=== PATIENT | male | born 1955 | race Asian ===

== ENCOUNTER 2017-03-24 16:51 | Emergency (ER) | payer OTHER ==
[2017-03-24 16:55] VITALS: BP 135/71; PULSE 84; TEMP 98.8; BMI 22.8
[2017-03-24] MEDS ORDERED: BACITRACIN 15 GM TUBE TOPICAL OINTMENT ONE ×2 (17:51→18:34)
--- NOTE | 2017-03-24 18:24 | PDOC ---
History of Present Illness - General Chief Complaint: Injury Stated Complaint: LACERATION Time Seen by Provider: 03/24/17 17:18 History Source: Patient Exam Limitations: No Limitations - History of Present Illness Initial Comments: 03/24/17 17:38 Patient is a 61-year-old male, history of hypertension high cholesterol presents to the Emergency department for evaluation of laceration to right medial ankle and the left lateral fifth finger. Patient states that he dropped a large glass jug on the floor and it broke and he sustained the above lacerations. Reports that he had a tetanus two years ago. Past Medical History: Denies. Allergies: No known allergies Medications: see medication list Family History: Non-contributory Social History: Denies smoking, alcohol use, or IVDU Review of Systems GENERAL/CONSTITUTIONAL: No fever or chills. No weakness. No weight change. RESPIRATORY: No cough, wheezing, or hemoptysis. MUSCULOSKELETAL: No joint or muscle swelling or pain. No neck or back pain. SKIN : 6 cm laceration to the right medial ankle, 3 cm laceration to the posterior left ankle, 4 cm flap laceration to the right fifth finger. NEUROLOGIC: No headache, vertigo, loss of consciousness, or loss of sensation. PSYCHIATRIC: No depression or anxiety. ENDOCRINE: No increased thirst. No abnormal weight change. HEMATOLOGIC/LYMPHATIC: No anemia, easy bleeding, or history of blood clots. ALLERGIC/IMMUNOLOGIC: No hives or skin allergy. No latex allergy. Physical Exam: GENERAL: The patient is awake, alert, and fully oriented, in no acute distress. LUNGS: Breath sounds equal, clear to auscultation bilaterally. No wheezes, and no crackles. HEART: Regular rate and rhythm, normal S1 and S2 without murmur, rub or gallop. ABDOMEN: Soft, nontender, normoactive bowel sounds. No guarding, no rebound. No masses. No bruising or abrasions MUSCULOSKELETAL: Normal range of motion, no edema. No clubbing or cyanosis. No cords, erythema, or tenderness. No CVA Tenderness with fist. SKIN: 6 cm laceration to the right medial ankle, 3 cm laceration to the posterior left ankle, 4 cm flap laceration to the right fifth finger. . Past History - Past Medical History Allergies/Adverse Reactions: Allergies Allergy/AdvReac Type Severity Reaction Status Date / Time No Known Allergies Allergy Verified 03/24/17 16:54 Home Medications: Ambulatory Orders Metoprolol Succinate [Toprol Xl] 100 mg PO DAILY 07/15/16 Oxycodone HCl [Roxicodone -] 5 mg PO Q4H PRN #30 tablet MDD 60mg 07/18/16 Amlodipine Besylate 10 mg PO ASDIR 03/24/17 Diabetes: Yes GI Disorders: No HTN: Yes - Surgical History Cholecystectomy: Yes (07/17/16) - Psycho/Social/Smoking Cessation Hx Anxiety: No Suicidal Ideation: No Smoking History: Never smoked Number of Cigarettes Smoked Daily: 0 Hx Alcohol Use: No Drug/Substance Use Hx: No Substance Use Type: None *Physical Exam - Vital Signs Last Vital Signs Temp Pulse Resp BP Pulse Ox 98.8 F 84 20 135/71 97 03/24/17 16:52 03/24/17 16:52 03/24/17 16:52 03/24/17 16:52 03/24/17 16:52 Procedures - Laceration/Wound Repair Right Medial Ankle Wound Length: 5.0 to 7.5 cm Wound Explored: clean Wound's Depth, Shape: linear Irrigated w/ Saline: Yes Betadine Prep: Yes Anesthesia: 1% Lidocaine Amount of Anesthetic (ccs): 6 Wound Debrided: moderate Wound Repaired With: Sutures Suture Size/Type: 5:0 Number of Sutures: 10 Layer Closure: No Right Finger Wound Length: 2.6 to 5.0 cm Wound Explored: clean Wound's Depth, Shape: linear Irrigated w/ Saline: Yes Betadine Prep: Yes Anesthesia: 1% Lidocaine Amount of Anesthetic (ccs): 2 Wound Repaired With: Sutures Suture Size/Type: 5:0 Number of Sutures: 5 Layer Closure: No Medical Decision Making - Medical Decision Making 03/24/17 18:28 A/P: Patient here for laceration repairs, see procedure note. Follow-up as instructed. *DC/Admit/Observation/Transfer Diagnosis at time of Disposition: Lacerations of multiple sites without complication - Discharge Dispostion Disposition: HOME Condition at time of disposition: Good Admit: No - Referrals Referrals: Brian Dawson MD [Primary Care Provider] - - Patient Instructions Additional Instructions: Keep area clean dry and intact Keep dressing on until tomorrow If any increased bleeding through the dressing return immediately to emergency department Keep area clean dry and intact bacitracin x3 days, then let it dry out Please return in 10 days for suture removal. Please return immediately to emergency department with any increased redness, swelling, signs of infection - Post Discharge Activity Work/School Note: Back to Work
== END 2017-03-24 19:05 | disposition home or self-care (01) ==
LOC: JERFT 16:51
PROC: 0HQMXZZ Repair Right Foot Skin, External Approach (ICD-10-PCS; principal; 2017-03-24)
PROC: 0HQFXZZ Repair Right Hand Skin, External Approach (ICD-10-PCS; 2017-03-24)
DX: S91.011A Laceration without foreign body, right ankle, initial encounter (principal); S61.216A Laceration without foreign body of right little finger without damage to nail, initial encounter; W25.XXXA Contact with sharp glass, initial encounter; Y93.89 Activity, other specified; Y92.9 Unspecified place or not applicable; I10 Essential (primary) hypertension; E78.00 Pure hypercholesterolemia, unspecified; E11.9 Type 2 diabetes mellitus without complications
CPT/HCPCS: 12004; 99281-25

== ENCOUNTER 2017-03-28 13:38 | Emergency (ER) | payer OTHER ==
[2017-03-28 13:45] VITALS: BP 115/73; PULSE 64; TEMP 98; BMI 30.2
--- NOTE | 2017-03-28 15:03 | PDOC ---
Suture Removal/Wound Check HPI - History of Present Illness Chief Complaint: Revisit,Wound Recheck Stated Complaint: INJURY Time Seen by Provider: 03/28/17 14:36 History Source: Yes: Patient Exam Limitations: Yes: No Limitations Treated at: [facility] ED - Previous ED Treatment Type of procedure performed on last visit: Yes: Laceration Repair Tetanus Immunization: Yes: Up to Date Past History - Travel Traveled outside of the country in the last 30 days: No Close contact w/someone who was outside of country & ill: No - Past Medical History Allergies/Adverse Reactions: Allergies No Known Allergies Allergy (Verified 03/28/17 13:45) Home Medications: Ambulatory Orders Metoprolol Succinate [Toprol Xl] 100 mg PO DAILY 07/15/16 Oxycodone HCl [Roxicodone -] 5 mg PO Q4H PRN #30 tablet MDD 60mg 07/18/16 Amlodipine Besylate 10 mg PO ASDIR 03/24/17 General: Yes: no pertinent history - Immunization History Tetanus Status: Unknown - Social History Smoking Status: Never smoked Number of Ciarettes Per Day: 0 Suture Removal/Wound Check PE - Physical Exam Laceration/Wound Check Symptoms: reports: None Current Severity Level: None Maximum Severity Level: None Location of Laceration/Wound: right: Finger (well healed V shaped laceration- no redness/ swelling or hematoma), left: Ankle (healing suture line, not well approximated thus far, no evidence of redness, swelling or exudate. Has some ecchymoses noted inferiorly to foot) *Review of Systems - Review of Systems Able to Perform ROS?: Yes Constitutional: Yes: See HPI. No: Symptoms Reported, Fever HEENTM: No: Symptoms Reported Respiratory: No: Symptoms reported Musculoskeletal: Yes: Symptoms Reported, See HPI, Joint Stiffness (left heel/ ankle) Integumentary: Yes: Symptoms Reported, See HPI, Bruising All Other Systems: Reviewed and Negative Medical Decision Making - Medical Decision Making 03/28/17 14:59 Check, right index finger and left he'll appear to be approximating well, reapply bacitracin ointment dressing and splint added to finger with instructions for post care. Will return in 10-14 days for suture removal *DC/Admit/Observation/Transfer Diagnosis at time of Disposition: Encounter for re-check of laceration wound - Discharge Dispostion Disposition: HOME Condition at time of disposition: Stable Admit: No - Patient Instructions Printed Discharge Instructions: How to Care for a Surgical Wound Additional Instructions: Rest, elevate, strenuous exercise or activity until sutures removed antabiotic ointment and dressing for the next 3 days then allowed to dry And 14 days when wounds appear to be well-healed - Post Discharge Activity Work/School Note: Back to Work
== END 2017-03-28 15:28 | disposition home or self-care (01) ==
LOC: JERFT 13:38
PROC: 2W3JX1Z Immobilization of Right Finger using Splint (ICD-10-PCS; principal; 2017-03-28)
DX: Z09 Encounter for follow-up examination after completed treatment for conditions other than malignant neoplasm (principal)
CPT/HCPCS: 29130; 99281-25

== ENCOUNTER 2017-04-08 11:48 | Emergency (ER) | payer OTHER ==
[2017-04-08 11:54] VITALS: BP 147/97; PULSE 64; TEMP 98.1; BMI 29.2
--- NOTE | 2017-04-08 13:27 | PDOC ---
Suture Removal/Wound Check HPI - History of Present Illness Chief Complaint: Suture/Staple Removal(Here) Stated Complaint: SUTURE REMOVAL Time Seen by Provider: 04/08/17 12:28 History Source: Yes: Patient Exam Limitations: Yes: No Limitations Treated at: [facility] ED - Previous ED Treatment Type of procedure performed on last visit: Yes: Laceration Repair Tetanus Immunization: Yes: Up to Date Antibiotics Prescribed: No Past History - Travel Traveled outside of the country in the last 30 days: No Close contact w/someone who was outside of country & ill: No - Past Medical History Allergies/Adverse Reactions: Allergies No Known Allergies Allergy (Verified 04/08/17 11:54) Home Medications: Ambulatory Orders Metoprolol Succinate [Toprol Xl] 100 mg PO DAILY 07/15/16 Amlodipine Besylate 10 mg PO ASDIR 03/24/17 General: Yes: no pertinent history - Immunization History Tetanus Status: Unknown - Social History Smoking Status: Never smoked Number of Ciarettes Per Day: 0 Suture Removal/Wound Check PE - Physical Exam Laceration/Wound Check Symptoms: reports: None Current Severity Level: None Maximum Severity Level: None Location of Laceration/Wound: left: Ankle (9 sutures removed from left ankle ) Pain Radiation: None *Review of Systems - Review of Systems Able to Perform ROS?: Yes Constitutional: Yes: Symptoms Reported, See HPI, Loss of Appetite HEENTM: No: Symptoms Reported Musculoskeletal: Yes: See HPI. No: Symptoms Reported, Back Pain, Joint Pain, Joint Swelling Integumentary: Yes: Symptoms Reported Neurological: No: Symptoms reported All Other Systems: Reviewed and Negative Medical Decision Making - Medical Decision Making 04/08/17 13:24 is removed from left ankle and right thumb without incident. Steri-Strips applied to poorly approximated left ankle laceration line midpoint. No purulent drainage, no evidence of cellulitis or infection. *DC/Admit/Observation/Transfer Diagnosis at time of Disposition: Encounter for removal of sutures - Discharge Dispostion Disposition: HOME Condition at time of disposition: Stable Admit: No - Referrals Referrals: Brian Dawson MD [Primary Care Provider] - - Patient Instructions - Post Discharge Activity
== END 2017-04-08 13:40 | disposition home or self-care (01) ==
LOC: JERFT 11:48
DX: Z48.02 Encounter for removal of sutures (principal)
CPT/HCPCS: 99281-25

== ENCOUNTER 2017-10-08 06:51 | Observation (INO) | payer OTHER ==
[2017-10-08] MEDS ORDERED: ONDANSETRON 4 MG/2 ML VIAL IVPB ONE (08:49)
[2017-10-08] MEDS ORDERED: SODIUM CHLORIDE 1,000 ML IV STA (08:49)
[2017-10-08] MEDS ORDERED: morphine CARPU-JECT 4 MG/1 ML DISP.SYRIN IVPUSH ONE (08:49)
[2017-10-08] MEDS ORDERED: ONDANSETRON 4 MG/2 ML VIAL ONE (08:57)
[2017-10-08] MEDS ORDERED: MORPHINE SULFATE 10 MG/1 ML *VIAL ONE (08:57)
--- NOTE | 2017-10-08 09:26 | PDOC ---
History of Present Illness <Killian Branch - Last Filed: 10/08/17 13:13> - History of Present Illness Initial Comments: 10/08/17 09:18 "The patient is a 62 year old male with a significant PMH of HTN, hyperlipidemia , and diabetes who presents to the emergency department with vomiting and abdominal pain beginning approximately last night. The patient notes he has had about 10 episodes of vomiting since last night with associated diffuse, burning abdominal pain. Denies diarrhea or constipation. However, he notes feeling as if his abdomen feels distended. The patient notes his last BM was at about 3AM last night. Of note, the patient ate a papaya at about 1PM yesterday and is concerned about food poisoning. Denies F/C. The patient denies chest pain, shortness of breath, headache and dizziness. Denies fever, chills, diarrhea and constipation. Denies dysuria, frequency, urgency and hematuria. Allergies: NKA Past surgical history: Cholecystectomy. Unspecified eye surgery. Social history: Former smoker. No reported alcohol or drug use. PCP: Dr. Brian Dawson " <Cholo Ferrara - Last Filed: 10/09/17 18:30> - General Chief Complaint: Nausea/Vomiting Stated Complaint: VOMITING Time Seen by Provider: 10/08/17 08:43 Past History <Killian Branch - Last Filed: 10/08/17 13:13> - Past Medical History COPD: No Diabetes: Yes GI Disorders: No HTN: Yes Hypercholesterolemia: Yes - Surgical History Cholecystectomy: Yes (07/17/16) - Suicide/Smoking/Psychosocial Hx Smoking History: Former smoker Have you smoked in the past 12 months: No Number of Cigarettes Smoked Daily: 0 Information on smoking cessation initiated: No Hx Alcohol Use: No Drug/Substance Use Hx: No Substance Use Type: None <Cholo Ferrara - Last Filed: 10/09/17 18:30> - Past Medical History Allergies/Adverse Reactions: Allergies Allergy/AdvReac Type Severity Reaction Status Date / Time No Known Allergies Allergy Verified 10/08/17 07:46 Home Medications: Ambulatory Orders Metoprolol Succinate [Toprol Xl] 100 mg PO DAILY 07/15/16 Amlodipine Besylate 10 mg PO DAILY 03/24/17 Docusate Sodium [Colace] 100 mg PO DAILY 10/08/17 Metformin HCl 500 mg PO BID 10/08/17 Simvastatin 40 mg PO DAILY 10/08/17 Acetaminophen [Tylenol .Regular Strength -] 650 mg PO Q4H PRN tablet 10/09/17 Review of Systems - Review of Systems Comments:: 10/08/17 09:28 "GENERAL/CONSTITUTIONAL: No fever or chills. No weakness. HEAD, EYES, EARS, NOSE AND THROAT: No change in vision. No ear pain or discharge. No sore throat. CARDIOVASCULAR: No chest pain or shortness of breath. RESPIRATORY: No cough, wheezing, or hemoptysis. GASTROINTESTINAL: (+) Vomiting. (+) Diffuse abdominal pain. No diarrhea or constipation. GENITOURINARY: No dysuria, frequency, or change in urination. MUSCULOSKELETAL: No joint or muscle swelling or pain. No neck or back pain. SKIN: No rash NEUROLOGIC: No headache, vertigo, loss of consciousness, or change in strength/ sensation. ENDOCRINE: No increased thirst. No abnormal weight change. HEMATOLOGIC/LYMPHATIC: No anemia, easy bleeding, or history of blood clots. ALLERGIC/IMMUNOLOGIC: No hives or skin allergy. " <Cholo Ferrara - Last Filed: 10/09/17 18:30> *Physical Exam - Vital Signs Last Vital Signs Temp Pulse Resp BP Pulse Ox 98.2 F 92 H 20 151/88 99 10/08/17 07:31 10/08/17 07:31 10/08/17 07:31 10/08/17 07:31 10/08/17 07:31 <Killian Branch - Last Filed: 10/08/17 13:13> - Vital Signs Last Vital Signs Temp Pulse Resp BP Pulse Ox 98.2 F 92 H 20 151/88 99 10/08/17 07:31 10/08/17 07:31 10/08/17 07:31 10/08/17 07:31 10/08/17 07:31 - Physical Exam Comments: 10/08/17 09:28 "GENERAL: Awake, alert, and fully oriented, in no acute distress HEAD: No signs of trauma EYES: PERRLA, EOMI, sclera anicteric, conjunctiva clear ENT: Auricles normal inspection, hearing grossly normal, nares patent, oropharynx clear without exudates. Moist mucosa NECK: Nontender, no stepoffs, Normal ROM, supple, no lymphadenopathy, JVD, or masses LUNGS: Breath sounds equal, clear to auscultation bilaterally. No wheezes, and no crackles HEART: Regular rate and rhythm, normal S1 and S2, no murmurs, rubs or gallops ABDOMEN: soft, diffuse TTP, non-tympanitic EXTREMITIES: Normal range of motion, no edema. No clubbing or cyanosis. No cords, erythema, or tenderness NEUROLOGICAL: Cranial nerves II through XII intact. 5/5 strength and sensation in all extremities, Normal speech, normal gait SKIN: Warm, Dry, normal turgor, no rashes or lesions noted. " <Cholo Ferrara - Last Filed: 10/09/17 18:30> ED Treatment Course - LABORATORY CBC & Chemistry Diagram: 10/08/17 08:55 10/08/17 08:55 - ADDITIONAL ORDERS Additional order review: Laboratory Results 10/08/17 10/08/17 10/08/17 09:04 08:55 08:55 PT with INR INR PTT (Actin FS) Sodium 135 L Potassium 4.0 Chloride 100 Carbon Dioxide 24 Anion Gap 11 BUN 12 Creatinine 1.2 Creat Clearance w eGFR > 60 Random Glucose 272 H D Calcium 8.7 Total Bilirubin 0.8 AST 14 L D ALT 24 D Alkaline Phosphatase 107 D Creatine Kinase 67 Troponin I < 0.02 Total Protein 7.9 Albumin 4.5 D Lipase 117 Blood Type AB POSITIVE Antibody Screen Negative 10/08/17 08:55 PT with INR 13.20 H INR 1.17 H PTT (Actin FS) 29.9 Sodium Potassium Chloride Carbon Dioxide Anion Gap BUN Creatinine Creat Clearance w eGFR Random Glucose Calcium Total Bilirubin AST ALT Alkaline Phosphatase Creatine Kinase Troponin I Total Protein Albumin Lipase Blood Type Antibody Screen 10/08/17 08:55 RBC 4.96 MCV 85.7 MCHC 31.9 L RDW 13.1 MPV 10.6 D Neutrophils % 91.5 H D Lymphocytes % 5.7 L D Monocytes % 2.5 L Eosinophils % 0.0 D Basophils % 0.3 - Medications Given in the ED: ED Medications Discontinued Medications Generic Name Dose Route Start Last Admin Trade Name Freq PRN Reason Stop Dose Admin Sodium Chloride 1,000 mls @ 1,000 mls/hr 10/08/17 08:49 10/08/17 09:03 Normal Saline - IV 10/08/17 09:48 1,000 mls/hr ASDIR STA Administration Morphine Sulfate 4 mg 10/08/17 08:49 10/08/17 09:03 Morphine Injection - IVPUSH 10/08/17 08:50 4 mg ONCE ONE Administration Ondansetron HCl 4 mg 10/08/17 08:49 10/08/17 09:00 Zofran Injection IVPB 10/08/17 08:50 4 mg ONCE ONE Administration - Additional Consults Time Called: 13:05 Consult/PCP: Spoke [facility] Dr. Grajeda who accepted this patient for admission. <Killian Branch - Last Filed: 10/08/17 13:13> - LABORATORY CBC & Chemistry Diagram: 10/09/17 06:45 10/09/17 06:45 - RADIOLOGY Radiology Studies Ordered: Category Date Time Status ABDOMEN & PELVIS CT WITH CONTR [CT] Stat CT Scan 10/08/17 08:53 Ordered ABDOMEN [id number] [RAD] Stat Radiology 10/08/17 08:48 Ordered - Medications Given in the ED: ED Medications Discontinued Medications Generic Name Dose Route Start Last Admin Trade Name Selvin PRN Reason Stop Dose Admin Morphine Sulfate 4 mg 10/08/17 08:49 10/08/17 09:03 Morphine Injection - IVPUSH 10/08/17 08:50 4 mg ONCE ONE Administration Ondansetron HCl 4 mg 10/08/17 08:49 10/08/17 09:00 Zofran Injection IVPB 10/08/17 08:50 4 mg ONCE ONE Administration <Cholo Ferrara - Last Filed: 10/09/17 18:30> Medical Decision Making - Medical Decision Making 10/08/17 09:29 62 M with abdominal distention, N+V. Concerning for SBO (pt has had prior lap andreina). Also consider pancreatitis. Anginal equivalent unlikely but pt with cardiac risk factors, so will r/o ACS with trop and EKG. - Labs, lipase, trop - EKG - CTAP 10/08/17 12:52 CTAP consistent with partial SBO. Pt's initial surgery done by Dr. Ortiz, who no longer practices here. Page sent out to Dr. Salgado. Pt admitted to Dr. Grajeda. Case discussed in detail with admitting physician including history, physical exam and ancillary studies. Admitting physician has assumed care for the patient and will follow all pending diagnostics and complete the evaluation and treatment. <Cholo Ferrara - Last Filed: 10/09/17 18:30> *DC/Admit/Observation/Transfer - Attestations Scribe Attestion: 10/08/17 11:51 Documentation prepared by Killian Branch, acting as family practice medical doctor for Cholo Ferrara MD. <Killian Branch - Last Filed: 10/08/17 13:13> - Discharge Dispostion Admit: Yes - Attestations Physician Attestion: 10/08/17 12:53 I, Dr. Cholo Ferrara MD, attest that this document has been prepared under my direction and personally reviewed by me in its entirety. I further attest, that it accurately reflects all work, treatment, procedures and medical decision -making performed by me. <Cholo Ferrara - Last Filed: 10/09/17 18:30> Diagnosis at time of Disposition: SBO (small bowel obstruction) - Discharge Dispostion Disposition: HOME Condition at time of disposition: Stable
[2017-10-08 09:31] LABS: BASO % 0.3 % (0-2.0); HEMATOCRIT 42.6 % (35.4-49); HEMOGLOBIN 13.6 GM/dL (11.7-16.9); LYMPH % 5.7 % (8-40); MCH 27.3 pg (25.7-33.7); MCHC 31.9 g/dl (32.0-35.9); MEAN CELL VOLUME 85.7 fl (80-96); MEAN PLT VOLUME 10.6 fl (7.5-11.1); MONO % 2.5 % (3.8-10.2); NEUT % 91.5 % (42.8-82.8); PLATELET COUNT 266 K/MM3 (134-434); RBC 4.96 M/mm3 (4.00-5.60); RDW 13.1 % (11.9-15.9); WHITE BLOOD COUNT 13.7 K/mm3 (4.0-10.0)
[2017-10-08 09:57] LABS: ALBUMIN 4.5 g/dl (3.4-5.0); ANION GAP 11 (8-16); BILIRUBIN,TOTAL 0.8 mg/dL (0.2-1.0); BLOOD UREA NITROGEN 12 mg/dL (7-18); CALCIUM 8.7 mg/dL (8.5-10.1); CHLORIDE 100 mmol/L (98-107); CO2 24 mmol/L (21-32); CREATININE 1.2 mg/dL (0.7-1.3); GLUCOSE,RANDOM 272 mg/dL (74-106); LIPASE 117 U/L (73-393); SGOT/AST 14 U/L (15-37); SGPT/ALT 24 U/L (12-78); SODIUM 135 mmol/L (136-145); TOT PROT 7.9 g/dl (6.4-8.2)
[2017-10-08 09:58] LABS: ALK PHOS 107 U/L (45-117); INR 1.17 (0.82-1.09); PROTHROMBIN TIME (PATIENT) 13.2 SEC (9.98-11.88)
[2017-10-08 10:00] LABS: ACTIVATED PTT 29.9 SECONDS (26.9-34.4)
--- NOTE | 2017-10-08 14:17 | CONSULT ---
- Consultation REQUESTING PROVIDER: Cholo Ferrara MD CONSULT REQUEST: We have been asked to surgically evaluate this patient for ( specify). PCP:Rustam Grajeda HISTORY OF PRESENT ILLNESS: CTSP who is a 62 y/o male who presented w/n/v/ abdominal pain; NOC; he feels better since arrival in the ER; he has never had this before; pain described a scrampy; he also had constipation; he gave himself an enema w/minimal result. He states he is passing flatus. PMHx: hypertension; NIDDM; hyperlipidemia PSHx: lap andreina 2015 Home Medications Medication Instructions Recorded Metoprolol Succinate [Toprol Xl] 100 mg PO DAILY 07/15/16 Amlodipine Besylate 10 mg PO DAILY 03/24/17 Docusate Sodium [Colace] 100 mg PO DAILY 10/08/17 Metformin HCl 500 mg PO BID 10/08/17 Simvastatin 40 mg PO DAILY 10/08/17 Allergies Allergy/AdvReac Type Severity Reaction Status Date / Time No Known Allergies Allergy Verified 10/08/17 07:46 PHYSICAL EXAM: GENERAL: Awake, alert, and fully oriented, in no acute distress. HEAD: Normal with no signs of trauma. EYES: sclera anicteric, conjunctiva clear. NECK: Normal ROM, supple without lymphadenopathy, JVD, or masses. ABDOMEN: Soft, nontender, not distended, normoactive bowel sounds, no guarding, no rebound, no masses. No organomegaly. No tympany; no hernias; healed lap andreina port sites MUSCULOSKELETAL: Normal ROM at all joints. No bony deformities or tenderness. No CVA tenderness. UPPER EXTREMITIES: 2+ pulses, warm, well-perfused. No cyanosis. Cap refill <2 seconds. No peripheral edema. LOWER EXTREMITIES: 2+ pulses, warm, well-perfused. No calf tenderness. No peripheral edema. NEUROLOGICAL: Normal speech, gait not observed. PSYCH: Cooperative. Good eye contact. Appropriate mood and affect. SKIN: Warm, dry, normal turgor, no rashes or lesions noted. Vital Signs Temperature 98.2 F 10/08/17 07:31 Pulse Rate 85 10/08/17 14:06 Respiratory Rate 18 10/08/17 14:06 Blood Pressure 146/66 10/08/17 14:06 O2 Sat by Pulse Oximetry (%) 99 10/08/17 14:06 Lab Results WBC 13.7 K/mm3 (4.0-10.0) H D 10/08/17 08:55 RBC 4.96 M/mm3 (4.00-5.60) 10/08/17 08:55 Hgb 13.6 GM/dL (11.7-16.9) 10/08/17 08:55 Hct 42.6 % (35.4-49) 10/08/17 08:55 MCV 85.7 fl (80-96) 10/08/17 08:55 MCHC 31.9 g/dl (32.0-35.9) L 10/08/17 08:55 RDW 13.1 % (11.9-15.9) 10/08/17 08:55 Plt Count 266 K/MM3 (134-434) 10/08/17 08:55 Sodium 135 mmol/L (136-145) L 10/08/17 08:55 Potassium 4.0 mmol/L (3.5-5.1) 10/08/17 08:55 Chloride 100 mmol/L (98-107) 10/08/17 08:55 Carbon Dioxide 24 mmol/L (21-32) 10/08/17 08:55 Anion Gap 11 (8-16) 10/08/17 08:55 BUN 12 mg/dL (7-18) 10/08/17 08:55 Creatinine 1.2 mg/dL (0.7-1.3) 10/08/17 08:55 Random Glucose 272 mg/dL (74-106) H D 10/08/17 08:55 Calcium 8.7 mg/dL (8.5-10.1) 10/08/17 08:55 Blood Type AB POSITIVE 10/08/17 12:02 Antibody Screen Negative 10/08/17 08:55 INR 1.17 (0.82-1.09) H 10/08/17 08:55 W/U to date reviewed IMP: No clearcut clinical and/or radiological evidence of significant SBO PLAN: Would admit and keep NPO; IVF; serial exams and serial abdominal obstructive series x rays; will f/u. Cholo Salgado MD FACS Visit type - Case Type Case Type: ED Admission - Emergency Emergency Visit: Yes ED Registration Date: 10/08/17 Care time: The patient presented to the Emergency Department on the above date and was hospitalized for further evaluation of their emergent condition. - New patient This patient is new to me today: Yes Date on this admission: 10/08/17 - Critical Care Critical Care patient: No
[2017-10-08] MEDS ORDERED: ACETAMINOPHEN 325 MG TABLET (FP) PO PRN (16:24)
[2017-10-08] MEDS ORDERED: MORPHINE SULFATE 10 MG/1 ML *VIAL IVPUSH PRN (16:28)
--- NOTE | 2017-10-08 16:29 | HP ---
Admitting History and Physical - Primary Care Physician PCP: Brian Dawson - Admission History of Present Illness: The patient is a 62 year old male --patient of Dr. Karolyn Dawson , with a significant PMH of HTN, hyperlipidemia, cholecystectomy and diabetes who presents to the emergency department with vomiting and abdominal pain beginning approximately last night. The patient notes he has had about 10 episodes of vomiting since last night with associated diffuse, burning abdominal pain. Denies diarrhea or constipation. However, he notes feeling as if his abdomen feels distended. The patient notes his last BM was at about 3AM last night. Of note, the patient ate a papaya at about 1PM yesterday and is concerned about food poisoning. Denies F/ C. The patient denies chest pain, shortness of breath, headache and dizziness. Denies fever, chills, diarrhea and constipation. Denies dysuria, frequency, urgency and hematuria. CAT scan done in the emergency room--- showed partial small bowel obstruction Patient admitted to floor Surgical consult requested by emergency room physician--- patient seen by surgeon I also discussed case with the ER physician Patient seen by me on the floor Feels better. Comfortable Denies pain Denies nausea or vomiting at present Passing gas. History Source: Patient Limitations to Obtaining History: No Limitations - Past Medical History Cardiovascular: Yes: HTN Endocrine: Yes: Diabetes Mellitus - Past Surgical History Past Surgical History: Yes: Cholecystectomy - Smoking History Smoking history: Former smoker Have you smoked in the past 12 months: No Aproximately how many cigarettes per day: 0 - Alcohol/Substance Use Hx Alcohol Use: No Home Medications - Allergies Allergies/Adverse Reactions: Allergies Allergy/AdvReac Type Severity Reaction Status Date / Time No Known Allergies Allergy Verified 10/08/17 07:46 - Home Medications Home Medications: Ambulatory Orders Metoprolol Succinate [Toprol Xl] 100 mg PO DAILY 07/15/16 Amlodipine Besylate 10 mg PO DAILY 03/24/17 Docusate Sodium [Colace] 100 mg PO DAILY 10/08/17 Metformin HCl 500 mg PO BID 10/08/17 Simvastatin 40 mg PO DAILY 10/08/17 Family Disease History - Family Disease History Family History: Unremarkable Review of Systems - Review of Systems Constitutional: reports: No Symptoms Eyes: reports: No Symptoms HENT: reports: No Symptoms Neck: reports: No Symptoms Cardiovascular: reports: No Symptoms Respiratory: reports: No Symptoms Gastrointestinal: reports: Abdominal Pain, Bloating, Nausea, Vomiting Genitourinary: reports: No Symptoms Neurological: reports: No Symptoms Endocrine: reports: No Symptoms Psychiatric: reports: No Symptoms Physical Examination Vital Signs: Vital Signs Temperature 98.2 F 10/08/17 07:31 Pulse Rate 85 10/08/17 14:06 Respiratory Rate 18 10/08/17 14:06 Blood Pressure 146/66 10/08/17 14:06 O2 Sat by Pulse Oximetry (%) 99 10/08/17 14:06 Constitutional: Yes: No Distress, Calm Eyes: Yes: Conjunctiva Clear Neck: Yes: Supple, Trachea Midline Cardiovascular: Yes: Regular Rate and Rhythm Respiratory: Yes: CTA Bilaterally Gastrointestinal: Yes: Soft (Nontender. Bowel sounds present.) Edema: No Neurological: Yes: Alert Psychiatric: Yes: Alert Labs: CBC, BMP 10/08/17 08:55 10/08/17 08:55 Imaging - Results X-ray: Report Reviewed Cat Scan: Report Reviewed Problem List - Problems (1) Diabetes Code(s): E11.9 - TYPE 2 DIABETES MELLITUS WITHOUT COMPLICATIONS (2) Hypertension Code(s): I10 - ESSENTIAL (PRIMARY) HYPERTENSION (3) Nausea and vomiting Code(s): R11.2 - NAUSEA WITH VOMITING, UNSPECIFIED Qualifiers: Vomiting type: unspecified Vomiting Intractability: non-intractable Qualified Code(s): R11.2 - Nausea with vomiting, unspecified (4) SBO (small bowel obstruction) Code(s): K56.609 - UNSP INTESTNL OBST, UNSP TO PARTIAL VERSUS COMPLETE OBST Assessment/Plan I believe partial small bowel obstruction is resolving Will keep nothing by mouth tonight IV fluids Monitor Follow-up electrolytes Anticipate short stay Trial of liquid diet in the morning If better--anticipate discharge soon.
[2017-10-08] MEDS ORDERED: D5-1/2NS+20 MEQ KCL - 20 MEQ/1,000 ML INFUS.BAG IV SCH (16:30)
[2017-10-08 16:46] VITALS: BMI 27.5
[2017-10-08] MEDS: INSULIN SLIDING SCALE (NOVOLOG) 1 VIAL SQ SCH (17:13)
[2017-10-08] MEDS: HEPARIN NA (PORCINE) 5,000 UNITS/ML 1ML VIAL SQ SCH (21:57)
[2017-10-09] MEDS: INSULIN SLIDING SCALE (NOVOLOG) 1 VIAL SQ SCH ×2 (06:13→12:09)
[2017-10-09 08:13] LABS: BASO % 0.5 % (0-2.0); EOS % 1.9 % (0-4.5); HEMOGLOBIN 12.1 GM/dL (11.7-16.9); LYMPH % 39.7 % (8-40); MCH 27.8 pg (25.7-33.7); MCHC 32.6 g/dl (32.0-35.9); MEAN CELL VOLUME 85.2 fl (80-96); MEAN PLT VOLUME 9.6 fl (7.5-11.1); MONO % 7.7 % (3.8-10.2); NEUT % 50.2 % (42.8-82.8); PLATELET COUNT 209 K/MM3 (134-434); RBC 4.34 M/mm3 (4.00-5.60); RDW 13.4 % (11.9-15.9); WHITE BLOOD COUNT 6.6 K/mm3 (4.0-10.0)
[2017-10-09 08:55] LABS: ALBUMIN 3.5 g/dl (3.4-5.0); ANION GAP 6 (8-16); BLOOD UREA NITROGEN 10 mg/dL (7-18); CALCIUM 8.2 mg/dL (8.5-10.1); CHLORIDE 105 mmol/L (98-107); CO2 31 mmol/L (21-32); CREATININE 1.1 mg/dL (0.7-1.3); GLUCOSE,RANDOM 136 mg/dL (74-106); POTASSIUM 3.7 mmol/L (3.5-5.1); SGOT/AST 17 U/L (15-37); SGPT/ALT 25 U/L (12-78); SODIUM 142 mmol/L (136-145)
[2017-10-09 08:57] LABS: ALK PHOS 86 U/L (45-117); BILIRUBIN,TOTAL 0.7 mg/dL (0.2-1.0); TOT PROT 6.5 g/dl (6.4-8.2)
[2017-10-09] MEDS: HEPARIN NA (PORCINE) 5,000 UNITS/ML 1ML VIAL SQ SCH ×2 (09:23→09:31)
[2017-10-09] MEDS ORDERED: METOPROLOL SUCCINATE 100 MG TAB.SR.24H (FP) PO SCH (10:00)
[2017-10-09] MEDS ORDERED: amLODIPine BESYLATE 10 MG TABLET (FP) PO SCH (10:00)
--- NOTE | 2017-10-09 10:40 | PN ---
Progress Note (short form) - Note Progress Note: Attending Surgeon No c/o; passing flatus and had a BM VSS AF abdomen-soft; flat and non tender; no tympany; o/w negative. Obstructive series done this AM shows to me no evidence of SBO IMP: improved PLAN: Trial of clear liquids and advance as tolerated. Cholo Salgado MD FACS
[2017-10-09] MEDS ORDERED: INSULIN (NOVOLOG) ASPART 100 UNITS/ML 10ML VIAL ONE (11:56)
--- NOTE | 2017-10-09 12:05 | DS ---
Physical Examination Vital Signs: Vital Signs Temperature 98.7 F 10/09/17 06:00 Pulse Rate 70 10/09/17 06:00 Respiratory Rate 18 10/09/17 06:00 Blood Pressure 116/70 10/09/17 06:00 O2 Sat by Pulse Oximetry (%) 98 10/08/17 22:00 Findings/Remarks: feels well no complains denies pain. tolerating diet passing gas wants to go home Constitutional: Yes: No Distress, Calm Neck: Yes: Supple Cardiovascular: Yes: Regular Rate and Rhythm Respiratory: Yes: CTA Bilaterally Gastrointestinal: Yes: Normal Bowel Sounds, Soft Edema: No Labs: CBC, BMP 10/09/17 06:45 10/09/17 06:45 Discharge Summary Reason For Visit: SMALL BOWEL OBSTRUCTION Current Active Problems Diabetes (Acute) Hypertension (Acute) Hospital Course: admitted for partial sbo treated conservatively. much better resolved will d/c home instructed to advance diet slowly advised to follow with his pmd in week Condition: Stable - Instructions Referrals: Brian Dawson MD [Primary Care Provider] - Disposition: HOME - Home Medications Comprehensive Discharge Medication List: Ambulatory Orders Metoprolol Succinate [Toprol Xl] 100 mg PO DAILY 07/15/16 Amlodipine Besylate 10 mg PO DAILY 03/24/17 Docusate Sodium [Colace] 100 mg PO DAILY 10/08/17 Metformin HCl 500 mg PO BID 10/08/17 Simvastatin 40 mg PO DAILY 10/08/17 Acetaminophen [Tylenol .Regular Strength -] 650 mg PO Q4H PRN tablet 10/09/17
[2017-10-09 12:18] VITALS: BP 138/54; PULSE 63; TEMP 97.7
--- NOTE | 2017-10-09 13:35 | EKG ---
Test Reason : Blood Pressure : / mmHG Vent. Rate : 088 BPM Atrial Rate : 088 BPM P-R Int : 162 ms QRS Dur : 082 ms QT Int : 374 ms P-R-T Axes : 038 -12 006 degrees QTc Int : 452 ms NORMAL SINUS RHYTHM POSSIBLE LEFT ATRIAL ENLARGEMENT LEFT VENTRICULAR HYPERTROPHY ABNORMAL ECG WHEN COMPARED WITH ECG OF 22-JUL-2016 18:32, VENT. RATE HAS INCREASED BY 32 BPM BASELINE ARTIFACT Confirmed by GABRIELA GAMEZ, MADISYN ([id number]) on 10/09/2017 1:35:00 PM Referred By: Confirmed By:MADISYN OCHOA MD
== END 2017-10-09 13:08 | disposition home or self-care (01) ==
LOC: JER 06:51 → JERBED 12:53 → UNDOADMOB 12:53 → INTOOBSV 12:53 → JERBED 14:25 → J5S 14:25 → JERBED 16:24 → J5S 16:24
PROVIDERS: ADMIT Internal Medicine; ATTEND Internal Medicine
PROC: 3E033NZ Introduction of Analgesics, Hypnotics, Sedatives into Peripheral Vein, Percutaneous Approach (ICD-10-PCS; principal; 2017-10-08)
PROC: 3E033GC Introduction of Other Therapeutic Substance into Peripheral Vein, Percutaneous Approach (ICD-10-PCS; 2017-10-08)
PROC: 3E0337Z Introduction of Electrolytic and Water Balance Substance into Peripheral Vein, Percutaneous Approach (ICD-10-PCS; 2017-10-08)
DX: K56.609 Unspecified intestinal obstruction, unspecified as to partial versus complete obstruction (principal); I10 Essential (primary) hypertension; E78.5 Hyperlipidemia, unspecified; E11.9 Type 2 diabetes mellitus without complications; R11.2 Nausea with vomiting, unspecified; Z87.891 Personal history of nicotine dependence; Z79.84 Long term (current) use of oral hypoglycemic drugs
CPT/HCPCS: 36415; 74019-TC; 74021-TC; 74177-TC; 80053; 82550; 82962; 83690; 84484; 85025; 85610; 85730; 86850; 86900; 86901; 93005; 93010; 96361; 96374; 96375; 99285-25; G0378; J1644

== ENCOUNTER 2022-11-06 14:20 | Emergency (ER) | payer OTHER ==
[2022-11-06 14:30] VITALS: BP 122/65; PULSE 68; RESP 20; TEMP 99; BMI 26.8
[2022-11-06 15:42] LABS: EPI CELLS 6 /uL (0-25.1); HYALINE CASTS 1 /uL (0-3.1); URINE APPEARANCE CLOUDY; URINE BACTERIA >9,000 /uL (0-1359); URINE BILIRUBIN NEGATIVE (NEGATIVE); URINE COLOR YELLOW; URINE GLUCOSE (UA) NEGATIVE (NEGATIVE); URINE KETONE TRACE (NEGATIVE); URINE LEUK ESTERASE 3+ (NEGATIVE); URINE NITRITE NEGATIVE (NEGATIVE); URINE PROTEIN 2+ (NEGATIVE); URINE RBC 37 /uL (0-23.9); URINE UROBILINOGEN 0.2 mg/dL (0.2-1.0); URINE WBC 2878 /uL (0-25.8)
[2022-11-06] MEDS ORDERED: CEFTRIAXONE 1 GM in DEXTROSE 5%-WATER - 100 ML IVPB ONE (16:17)
[2022-11-06] MEDS ORDERED: CEFTRIAXONE 1 GM/50 ML BAG ONE (17:37)
[2022-11-06 17:56] LABS: BASO % 0.7 % (0-2.0); EOS % 0.1 % (0-4.5); HEMATOCRIT 38.4 % (35.4-49); HEMOGLOBIN 12.7 GM/dL (11.7-16.9); LYMPH % 10.8 % (8-40); MCH 27.3 pg (25.7-33.7); MCHC 33.2 g/dl (32.0-35.9); MEAN CELL VOLUME 82.3 fl (80-96); MEAN PLT VOLUME 8.2 fl (7.5-11.1); MONO % 8.5 % (3.8-10.2); NEUT % 79.9 % (42.8-82.8); PLATELET COUNT 232 10^3/uL (134-434); RBC 4.66 M/mm3 (4.00-5.60); WHITE BLOOD COUNT 15.1 K/mm3 (4.0-10.0)
[2022-11-06] MEDS ORDERED: SODIUM CHLORIDE 0.9% 500 ML INFUS.BAG IV ONE ×2 (18:14→19:30)
[2022-11-06 18:15] LABS: CALCIUM 8.2 mg/dL (8.5-10.1)
[2022-11-06 18:16] LABS: ALBUMIN 3.1 g/dl (3.4-5.0); BLOOD UREA NITROGEN 15.6 mg/dL (7-18)
[2022-11-06 18:20] LABS: BILIRUBIN,TOTAL 1.2 mg/dL (0.2-1)
[2022-11-06 18:31] LABS: ANISOCYTOSIS 1+; MACROCYTOSIS 0
[2022-11-06 22:26] LABS: BLOOD UREA NITROGEN 13.6 mg/dL (7-18)
[2022-11-06 22:29] LABS: CREATININE 0.7 mg/dL (0.55-1.3)
== END 2022-11-06 22:48 | disposition home or self-care (01) ==
LOC: JERFT 14:20
DX: N39.0 Urinary tract infection, site not specified (principal); N41.0 Acute prostatitis
CPT/HCPCS: 36415; 74177-TC; 80048; 80053; 81003; 85025; 87086; 87186; 96374; 99285-25; Q9967

== ENCOUNTER 2024-10-24 04:40 | Day surgery (SDC) | payer OTHER ==
[2024-10-16 13:52] VITALS: BMI 25.9
[2024-10-24 13:04] VITALS: BP 130/76; PULSE 69; RESP 16; TEMP 97.8
[2024-10-24 13:27] LABS: BASO % 0.4 % (0-2.0); EOS % 1.5 % (0-4.5); HEMATOCRIT 34.8 % (35.4-49); HEMOGLOBIN 11.6 GM/dL (11.7-16.9); LYMPH % 31.9 % (8-40); MCH 29.6 pg (25.7-33.7); MCHC 33.2 g/dl (32.0-35.9); MEAN CELL VOLUME 89.4 fl (80-96); MEAN PLT VOLUME 7.8 fl (7.5-11.1); MONO % 8.2 % (3.8-10.2); PLATELET COUNT 251 10^3/uL (134-434); WHITE BLOOD COUNT 4.6 K/mm3 (4.0-10.0)
[2024-10-24 13:46] LABS: CHLORIDE 106 mmol/L (98-107); POTASSIUM 3.6 mmol/L (3.5-5.1); SODIUM 142 mmol/L (136-145)
[2024-10-24 13:50] LABS: BLOOD UREA NITROGEN 11.9 mg/dL (7-18)
[2024-10-24 13:51] LABS: ANION GAP 8 mmol/L (4-13); CO2 27 mmol/L (21-32)
[2024-10-24 13:52] LABS: GLUCOSE,RANDOM 102 mg/dL (74-106)
[2024-10-24 13:55] LABS: CREATININE 1.4 mg/dL (0.55-1.3); SGPT/ALT 25 U/L (13-61)
[2024-10-24 13:56] LABS: BILIRUBIN,TOTAL 0.6 mg/dL (0.2-1); SGOT/AST 13 U/L (15-37)
[2024-10-24 13:57] LABS: ALK PHOS 67 U/L (45-117); TOT PROT 6.9 g/dl (6.4-8.2)
== END 2024-10-24 12:50 | disposition home or self-care (01) ==
LOC: JASU-ENDO 04:40
PROVIDERS: ATTEND Internal Medicine Gastroenterology
PROC: 0DBK8ZX Excision of Ascending Colon, Via Natural or Artificial Opening Endoscopic, Diagnostic (ICD-10-PCS; 2024-10-24)
PROC: 0DB98ZX Excision of Duodenum, Via Natural or Artificial Opening Endoscopic, Diagnostic (ICD-10-PCS; 2024-10-24)
PROC: 0DB78ZX Excision of Stomach, Pylorus, Via Natural or Artificial Opening Endoscopic, Diagnostic (ICD-10-PCS; 2024-10-24)
PROC: 0DB68ZX Excision of Stomach, Via Natural or Artificial Opening Endoscopic, Diagnostic (ICD-10-PCS; 2024-10-24)
PROC: 0DBK8ZX Excision of Ascending Colon, Via Natural or Artificial Opening Endoscopic, Diagnostic (ICD-10-PCS; principal; 2024-10-24 11:00)
DX: Z12.11 Encounter for screening for malignant neoplasm of colon (principal); D12.0 Benign neoplasm of cecum; D12.2 Benign neoplasm of ascending colon; K29.50 Unspecified chronic gastritis without bleeding; K64.8 Other hemorrhoids; I10 Essential (primary) hypertension; E11.9 Type 2 diabetes mellitus without complications; Z79.84 Long term (current) use of oral hypoglycemic drugs
CPT/HCPCS: 36415; 80053; 82962; 83690; 85025; 86140; 88305-TC

== ENCOUNTER 2025-03-01 17:05 | Emergency (ER) | payer OTHER ==
[2025-03-01 17:09] VITALS: BP 117/70; PULSE 88; RESP 18; TEMP 98.6; BMI 27.4
[2025-03-01] MEDS ORDERED: ONDANSETRON 4 MG/2 ML VIAL ONE (18:30)
[2025-03-01 18:34] LABS: ABSOLUTE IMMATURE GRANULOCYTES 0.09 x10^3/uL (0.0-0.031); BASOPHILS # 0.02 x10^3/uL (0.01-0.08); HEMATOCRIT 41.8 % (40.1-51.0); HEMOGLOBIN 13.6 g/dL (13.7-17.5); MCHC 32.5 g/dl (32.3-36.5); MEAN CELL VOLUME 86.2 fl (79.0-92.2); MEAN PLT VOLUME 11.3 fl (9.4-12.4); MONOCYTE # 0.54 x10^3/uL (0.30-0.82); MONOCYTE % 5.2 % (5.3-12.2); PLATELET COUNT 213 x10^3/uL (163-337); RDW 13.1 % (12.2-16.6)
[2025-03-01] MEDS: SODIUM CHLORIDE 0.9% 500 ML INFUS.BAG IV ONE (18:41)
[2025-03-01] MEDS: ONDANSETRON 4 MG/2 ML VIAL IVPB ONE (18:41)
[2025-03-01 18:49] LABS: INR 1.1 (0.83-1.09)
[2025-03-01 18:52] LABS: ACTIVATED PTT 28.3 SECONDS (25.2-36.5)
[2025-03-01 19:04] LABS: POTASSIUM 4.4 mmol/L (3.5-5.1)
[2025-03-01 19:07] LABS: BLOOD UREA NITROGEN 21.8 mg/dL (7-18); CALCIUM 9.4 mg/dL (8.5-10.1); MAGNESIUM 1.9 mg/dL (1.8-2.4)
[2025-03-01 19:10] LABS: CREATININE 1.2 mg/dL (0.55-1.3); PHOSPHOROUS 2.3 mg/dL (2.5-4.9)
[2025-03-01 19:11] LABS: BILIRUBIN,TOTAL 1.2 mg/dL (0.2-1); TOT PROT 7.5 g/dl (6.4-8.2)
[2025-03-01 20:03] LABS: HCV DIAGNOSTIC IN-HOUSE W/RFLX NON-REACTIVE (NONREACTIVE); HIV INTERPRETATION NEGATIVE (NEGATIVE)
[2025-03-01 22:31] LABS: BILIRUBIN,DIRECT 0.3 mg/dL (0.0-0.2)
[2025-03-01] MEDS: ACETAMINOPHEN 500 MG TABLET (FP) PO ONE (23:32)
[2025-03-01] MEDS ORDERED: ACETAMINOPHEN 325 MG TABLET (FP) ONE (23:33)
[2025-03-02 00:01] LABS: URINE COLOR YELLOW
[2025-03-02 00:02] LABS: PH,URINE 6.5 (5.0-8.0); URINE BILIRUBIN NEGATIVE (NEGATIVE); URINE GLUCOSE (UA) NEGATIVE (NEGATIVE); URINE KETONE NEGATIVE (NEGATIVE); URINE PROTEIN NEGATIVE (NEGATIVE)
[2025-03-02 00:03] LABS: URINE APPEARANCE CLEAR; URINE NITRITE NEGATIVE (NEGATIVE); URINE UROBILINOGEN 0.2 mg/dL (0.2-1.0)
[2025-03-02 00:04] LABS: EPI CELLS 1.7 /uL (0-25.1); URINE RBC 36.1 /uL (0-23.9); URINE WBC 1.3 /uL (0-25.8)
[2025-03-02 00:05] LABS: URINE BACTERIA 1.9 /uL (0-1359); URINE LEUK ESTERASE NEGATIVE (NEGATIVE)
== END 2025-03-02 00:35 | disposition home or self-care (01) ==
LOC: JER 17:05
PROC: 3E033GC Introduction of Other Therapeutic Substance into Peripheral Vein, Percutaneous Approach (ICD-10-PCS; principal; 2025-03-01)
DX: R11.2 Nausea with vomiting, unspecified (principal); R10.13 Epigastric pain; R51.9 Headache, unspecified; T78.1XXA Other adverse food reactions, not elsewhere classified, initial encounter
CPT/HCPCS: 0241U-QW; 36415; 71046-TC-FY; 74177-TC; 76705-TC; 80053; 81003; 82248; 83690; 83735; 84100; 84484; 85025; 85610; 85730; 86803; 87086; 87389; 93005; 93010; 96374; 99285-25